=== PATIENT | male | born 1940 | race Caucasian/White ===

== ENCOUNTER 2019-07-05 16:08 | Outpatient (CLI) | payer OTHER, SELFPAY ==
--- NOTE | ~2019-07-05 | XR_ITS ---
EXAMINATION: XR chest 2V DATE: 07/05/2019 16:29 INDICATION: Cough for six months, no fever TECHNIQUE: PA and lateral views of the chest are obtained. COMPARISON: 12/23/2017 FINDINGS: The lungs are free of acute opacities. There is no pleural effusion or pneumothorax. The ca rdiomediastinal silhouette is normal. There is mild thoracic spondylosis. IMPRESSION: 1. No acute cardiopulmonary abnormality. Reviewed, dictated and finalized at location A.
== END 2019-07-05 16:09 | disposition home or self-care (01) ==
LOC: ANHIMG 16:14
PROVIDERS: PCP Family Medicine; Visit Provider Family Medicine
DX: R05 Cough (principal)
CPT/HCPCS: 71046

== ENCOUNTER 2020-04-13 13:47 | Outpatient (CLI) | payer OTHER, SELFPAY ==
--- NOTE | ~2020-04-13 | XR_ITS ---
EXAMINATION: XR chest 2V DATE: 04/13/2020 14:03 INDICATION: Cough TECHNIQUE: PA and lateral views of the chest were obtained. COMPARISON: Chest radiograph dated 07/05/19 FINDINGS: Persistent mild opacities at the lingula and favor atelectasis/scarring over pneumonia. No other new airspace opacities, pulmonary edema, pleural effusion or pneumothorax. The cardiomediastinal silhouet te is normal. Mild thoracic spondylosis. IMPRESSION: 1. Chronic mild lingular opacities and favor atelectasis/scarring over pneumonia. Reviewed, dictated and finalized at location B. TH INFORMATION DIRECTOR IMPRESSION: 1. Chronic mild lingular opacities and favor atelectasis/scarring over pneumoni a.
== END 2020-04-13 13:48 | disposition home or self-care (01) ==
PROVIDERS: PCP Family Medicine; Visit Provider Family Medicine
DX: R05 Cough (principal); R91.8 Other nonspecific abnormal finding of lung field
CPT/HCPCS: 71046

== ENCOUNTER 2020-07-02 10:48 | Outpatient (CLI) | payer OTHER, SELFPAY | END 2020-07-02 10:49 | disposition home or self-care (01) | LOC: ANHCOVIDVC 10:49 | PROVIDERS: PCP Family Medicine | DX: Z23 Encounter for immunization (principal) | CPT/HCPCS: 0001A; 91300 ==

== ENCOUNTER 2020-07-23 10:44 | Outpatient (CLI) | payer OTHER, SELFPAY | END 2020-07-23 10:45 | disposition home or self-care (01) | LOC: ANHCOVIDVC 10:45 | PROVIDERS: PCP Family Medicine | DX: Z23 Encounter for immunization (principal) | CPT/HCPCS: 0002A; 91300 ==

== ENCOUNTER → 2021-03-29 11:52 | Outpatient (CLI) | payer OTHER, SELFPAY ==
--- NOTE | ~2021-03-29 | XR_ITS ---
EXAMINATION: XR lumbar spine 2-3V EXAM DATE: 03/29/2021 12:12 INDICATION: M54.9 - Dorsalgia, unspecified . TECHNIQUE: Lumber spine frontal, lateral, lateral L5-S1 projections for interpretation. There is no prior study for comparison. FINDINGS: There is 5 mm anterolisthesis L4 on L5 without spondylolysis suspected. Moderate to severe L4-5 facet arthropathy, moderate at other lumbar levels. Mild to moderate disc disease L3-4, mild at the other lumbar levels. Sacrum, sacroiliac joints, sacral arcuate lines are intact. Paraspinal soft tissue is unremarkable. Minimal lumbar levocurvature. IMPRESSION: L4-5 grade 1 anterolisthesis, advanced arthropathy. Reviewed, dictated and finalized at location A. ITY FACILITATOR
== END ==
PROVIDERS: PCP Physician Assistant; Visit Provider Physician Assistant
DX: M54.9 Dorsalgia, unspecified (principal)
CPT/HCPCS: 72100

== ENCOUNTER → 2023-02-27 11:18 | Outpatient (CLI) | payer OTHER, SELFPAY ==
--- NOTE | ~2023-02-27 | XR_ITS ---
EXAMINATION: XR abdomen/kub 1V DATE: 02/27/2023 11:40 INDICATION: Constipation. TECHNIQUE: A supine view of the abdomen on 2 radiographs was obtained. COMPARISON: None. FINDINGS: There are dilated loops of small bowel. The colon is decompressed. IMPRESSION: 1. Dilated small bowel, consistent with adynamic ileus versus small bowel obstruction. Reviewed, dictated and finalized at location A. RWRITING SERVICE REPRESENTATIVE IMPRESSION: 1. Dilated small bowel, consistent with adynamic ileus versus small bowel obstr uction.
== END ==
PROVIDERS: PCP Family Medicine; Visit Provider Nurse Practitioner
DX: K63.89 Other specified diseases of intestine (principal); K59.00 Constipation, unspecified
CPT/HCPCS: 74018

== ENCOUNTER 2023-03-24 10:06 | Outpatient (CLI) | payer OTHER, SELFPAY ==
--- NOTE | ~2023-03-24 | CT_ITS ---
CT of the Abdomen and Pelvis: Indication: Diarrhea Technique: 2.5 mm axial scans were obtained through the abdomen and pelvis following intravenous adm inistration of 100 cc of Omnipaque 350. Dose reduction technique was used on this scan by utilizing a utomated exposure control and iterative reconstruction technique. The dose-length product (DLP) was 8 78.90 mGy-cm. Findings: Scans through the lung bases are unremarkable. The liver, spleen, pancreas, and adrenal glands are within normal limits. Small gallstones noted. Sma ll bilateral nonobstructing renal stones are present. Mild atherosclerotic changes of aorta noted. N o lymphadenopathy. No bowel obstruction or bowel wall thickening. There is no evidence to suggest acute appendicitis. Images through the pelvis were performed. Urinary bladder unremarkable. Prostate gland and seminal ve sicles are unremarkable. No ascites. Impression: Small bilateral nonobstructing renal stones. Small gallstones. Reviewed, dictated and finalized at [facility]. 5TH GRADE TEACHER Impression: Small bilateral nonobstructing renal stones. Small gallstones.
[2023-03-24 10:59] LABS: Estimated Glomerular Filt Rate > 60
== END 2023-03-24 10:07 | disposition home or self-care (01) ==
PROVIDERS: PCP Family Medicine; Visit Provider Nurse Practitioner Family
DX: R19.7 Diarrhea, unspecified (principal); R93.5 Abnormal findings on diagnostic imaging of other abdominal regions, including retroperitoneum; N20.0 Calculus of kidney; K80.20 Calculus of gallbladder without cholecystitis without obstruction
CPT/HCPCS: 74177; Q9967

== ENCOUNTER 2024-01-09 09:31 | Emergency (ER) | payer OTHER, SELFPAY ==
--- NOTE | 2024-01-09 09:33 | ED.SKABFB ---
HPI - Skin/Abscess/Foreign Bdy General Chief complaint: Skin/Abscess/Foreign Body Stated complaint: Rash Time Seen by Provider: 01/09/24 09:32 Source: patient Mode of arrival: ambulatory Limitations: no limitations History of Present Illness HPI narrative: Joaquín is an 83-year-old male patient presenting to the clinic today with complaints of a rash to bilateral arms. He reports the rash is raised itchy. States he has developed a rash over the last 24 hours. Is currently taking clindamycin which we have listed as a allergy causing hives. He reports he was seen by his dentist 10 days ago and prescribed clindamycin for a dental infection. He reports that his dental pain is better however he has developed a rash now. States that he could not remember if he was allergic to clindamycin or not. Related Data Home Medications Medication Instructions Recorded Confirmed brimonidine 0.2 % eye drops 1 drop ophthalmic (eye) BID 07/05/19 01/09/24 fluticasone propionate 50 1 spray intranasal DAILY 03/29/21 01/09/24 mcg/actuation nasal spray,suspension (Flonase Allergy Relief) omeprazole 20 mg capsule,delayed 20 mg PO DAILY 11/30/21 01/09/24 release dorzolamide 22.3 mg-timolol 6.8 1 drp EACH EYE BID 04/05/22 01/09/24 mg/mL eye drops latanoprost 0.005 % eye drops 1 drp EACH EYE QPM 04/05/22 01/09/24 calcium carbonate (Calcium 600) 600 mg PO .3xa week 02/27/23 01/09/24 gabapentin 800 mg tablet 800 mg PO TID 02/27/23 01/09/24 loratadine 10 mg tablet (Claritin) 10 mg PO DAILY 10/12/23 01/09/24 Allergies Allergy/AdvReac Type Severity Reaction Status Date / Time niacin Allergy Unknown Skin Verified 01/09/24 09:37 Reaction Penicillins Allergy Unknown swelling Verified 01/09/24 09:37 Sulfa (Sulfonamide Allergy Unknown UNKNOWN Verified 01/09/24 09:37 Antibiotics) sulfamethizole Allergy Unknown reaction Verified 01/09/24 09:37 clindamycin Allergy Hives Verified 01/09/24 09:37 Review of Systems Review of Systems: Pertinent positives per HPI. Patient denies any fever, chills, headache, visual changes, dizziness, cough, runny nose, sore throat, shortness of breath, chest pain, palpitations, nausea, vomiting, diarrhea, constipation, abdominal pain, or any urinary issues. [facility] Past Medical History Medical History IBS (irritable bowel syndrome) Loose stools Family History Family History Father Hypertension Family history of coronary artery disease Acute myocardial infarction Family history of congestive heart failure Sibling Family history of malignant neoplasm of uterus, Onset Age: 58 Mother Family history of coronary artery disease Family history of congestive heart failure, Onset Age: 90 Family history of cardiovascular disease Family history of malignant neoplasm of uterus Other Family history of sleep apnea Social History Social History Social History: Caffeine-tea/diet soda Smoking status: Never smoker Alcohol intake: never Substance use: never Substance use type: does not use Lack of Transportation: No Lack of Food: Never True Current Housing: I Have Housing Concerned About Future Housing: No Difficulty Paying Gas/Electric Bills: No Difficulty Paying for Meds: No Currently Unemployed: No Education: Master's Degree or Higher Difficulty w/ Childcare or Family Care: No Comments At the time of my signature, I reviewed and agree with the nursing past medical, surgical, social, and family history. There is no relevant family history pertinent to the patient complaint. Exam Narrative: General: Well-developed, well nourished, in no apparent distress Head: Normocephalic, atraumatic. Cardio: Regular rate and rhythm, s1 and s2 normal, no murmur appreciated. Resp: Clear to auscul
[2024-01-09 09:39] VITALS: BP 119/69; PULSE 61; RESP 16; TEMP 36.6; O2SAT 97
== END 2024-01-09 09:51 | disposition home or self-care (01) ==
PROVIDERS: Emergency Provider Nurse Practitioner Family; PCP Family Medicine
DX: L50.0 Allergic urticaria (principal); I10 Essential (primary) hypertension; G47.30 Sleep apnea, unspecified; K21.9 Gastro-esophageal reflux disease without esophagitis; M19.90 Unspecified osteoarthritis, unspecified site; E05.00 Thyrotoxicosis with diffuse goiter without thyrotoxic crisis or storm; L40.9 Psoriasis, unspecified; Z86.16 Personal history of COVID-19
CPT/HCPCS: 99213; G0463

== ENCOUNTER 2024-09-17 08:19 | Outpatient (CLI) | payer OTHER, SELFPAY ==
[2024-09-17 15:40] LABS: Alanine Aminotransferase 24 U/L (6-50); Albumin Level 4.4 g/dL (3.5-5.1); Alkaline Phosphatase 64 U/L (38-126); Anion Gap 10 mmol/L (4-12); Aspartate Amino Transferase 53 U/L (17-59); Bilirubin,Total 0.7 mg/dL (0.2-1.3); Blood Urea Nitrogen 17 mg/dL (9-20); Calcium 8.9 mg/dL (8.4-10.2); Carbon Dioxide 28 mmol/L (22-30); Chloride 101 mmol/L (98-107); Cholesterol 202 mg/dL (0-200); Estimated Glomerular Filt Rate > 60; Glucose 92 mg/dL (65-110); HDL Direct 39 mg/dL; Potassium 4.4 mmol/L (3.4-5.0); Sodium 139 mmol/L (137-145); Total Protein 7.9 g/dL (6.3-8.2); Triglycerides 132 mg/dL (<150)
[2024-09-17 16:31] LABS: Vitamin B12. 250.0 pg/mL (239-931)
[2024-09-17 16:57] LABS: Hematocrit 46.8 % (42.0-52.0); Hemoglobin 15.0 g/dL (14.0-18.0); Immature Granulocyte Percent A 0.4 % (0-0.5); Lymphocytes Absolute Auto 1.87 K/mm3 (0.9-3.2); Mean Corpuscular HGB Conc 32.1 g/dl (32-36); Mean Corpuscular Hemoglobin 31.3 pg (26-34); Mean Corpuscular Volume 97.7 fl (80-100); Nucleated Red Blood Cells Absolute Auto 0.000 K/mm3 (0.0-0.012); Nucleated Red Blood Cells Perc 0.0 % (0.0-0.2); Platelet Count Result 208 k/mm3 (150-375); Red Blood Count 4.79 M/mm3 (4.6-6.20); White Blood Count 7.7 K/mm3 (4.5-10.0)
[2024-09-17 17:05] LABS: Thyroid Stimulating Hormone Reflex 2.240 uIU/mL (0.465-4.68)
[2024-09-17 20:36] LABS: Hemoglobin A1C. 5.2 % (<5.7)
== END 2024-09-17 08:20 | disposition home or self-care (01) ==
LOC: ANHGOSHLAB 08:20
PROVIDERS: PCP Family Medicine; Visit Provider Family Medicine
DX: Z00.00 Encounter for general adult medical examination without abnormal findings (principal); E78.5 Hyperlipidemia, unspecified; E03.9 Hypothyroidism, unspecified; I10 Essential (primary) hypertension; R73.9 Hyperglycemia, unspecified; E53.8 Deficiency of other specified B group vitamins; E55.9 Vitamin D deficiency, unspecified
CPT/HCPCS: 36415; 80053; 80061; 82306; 82607; 83036; 84443; 85025